=== PATIENT | female | born 1970 | race Caucasian/White ===

== ENCOUNTER 2025-02-02 08:03 | Outpatient (CLI) | payer OTHER, SELFPAY | END 2025-02-02 08:04 | disposition home or self-care (01) | LOC: FRMREF 08:03 | PROVIDERS: PCP Family Medicine; Visit Provider Family Medicine | DX: Z00.00 Encounter for general adult medical examination without abnormal findings (principal); Z13.6 Encounter for screening for cardiovascular disorders; K21.9 Gastro-esophageal reflux disease without esophagitis | CPT/HCPCS: 80053; 80061; 83735 ==